=== PATIENT | male | born 1960 | race Caucasian/White ===

== ENCOUNTER 2018-07-01 02:25 | Emergency (ER) | payer MEDICARE, MEDICAID ==
[2018-07-01 03:01] LABS: Hemoglobin 11.8 g/dL (14.0-18.0); Mean Corpuscular HGB CONC 31.5 g/dL (32.0-36.0); Mean Corpuscular Hemoglobin 25.4 pg (27.0-31.0); Mean Corpuscular Volume 80.6 fL (78.0-98.0); Mean Platelet Volume 11.7 fL (7.4-10.4); Platelet Count 102 thou/uL (130-400); RBC Distribution Width 14.9 % (11.5-14.5); Red Blood Cell (RBC) Count 4.63 mill/uL (4.70-6.10); White Blood Cell (WBC) Count 5.4 thou/uL (4.8-10.8)
[2018-07-01 03:12] LABS: ALT (SGPT) 25 U/L (8-55); AST (SGOT) 20 U/L (5-34); Albumin 3.9 g/dL (3.5-5.0); Alkaline Phosphatase 67 U/L (40-150); Anion Gap 15 mmol/L (10-20); BUN (Urea Nitrogen) 38 mg/dL (8.4-25.7); Bilirubin, Total 0.5 mg/dL (0.2-1.2); Calc. Creatinine Clearance 0 mL/min (70-130); Calcium 8.2 mg/dL (7.8-10.44); Carbon Dioxide 23 mmol/L (22-29); Chloride 112 mmol/L (98-107); Estimated GFR-MDRD 32; Globulin 2.8 g/dL (2.4-3.5); Glucose 133 mg/dL (70-105); Potassium 4.1 mmol/L (3.5-5.1); Protein, Total 6.7 g/dL (6.0-8.3); Sodium 146 mmol/L (136-145)
[2018-07-01 03:16] LABS: #Basophils 0.1 thou/uL (0.0-0.2); #Eosinphils 0.1 thou/uL (0.0-0.7); #Lymphocytes 0.7 thou/uL (1.20-3.40); #Monocytes 0.3 thou/uL (0.11-0.59); #Neutrophils 4.1 thou/uL (1.40-6.50); %Basophils 1.3 % (0.0-1.0); %Eosinophils 2.2 % (0.0-10.0); %Lymphocytes 13.6 % (21.0-51.0); %Monocytes 6.3 % (0.0-10.0); %Neutrophils 76.7 % (42.0-75.0); Platelet Morphology Comment Appears Decreased; RBC Morphology Normal
[2018-07-01 03:19] LABS: MDiff Complete? YES; Manual Diff?? NO
[2018-07-01] MEDS ORDERED: Furosemide 40 MG/4 ML VIAL ONE (04:15)
[2018-07-01 04:26] LABS: Clarity Hazy (Clear); Glucose, Urine (Dipstick) 100 mg/dL (Negative); Leukocyte Negative (Negative); Nitrite Negative (Negative); Protein, Urine (Dipstick) > or equal to 300 mg/dL (Neg-Trace); Specific Gravity, Urine 1.024 (1.002-1.036)
[2018-07-01 04:27] LABS: Bilirubin Small (Negative); Blood, Urine Moderate (Negative)
[2018-07-01 04:32] LABS: Crystals/HPF 1+ AMORPH URATES HPF (Negative); Squamous Epithelial 0-3 HPF (0-3); WBC/HPF 0-3 HPF (0-3)
--- NOTE | 2018-07-01 07:41 | RAD ---
CHEST 2 VIEWS: Date: 07/01/18 The heart is mildly enlarged. There is no remarkable congestion of the upper lobe vessels, but bilate ral pleural effusions are seen. There is increased density in the right base medially suggestive of a small infiltrate or atelectasis here. The mediastinum is unremarkable. IMPRESSION: 1. Cardiomegaly. 2. Bilateral pleural effusions. 3. Possible right basilar infiltrate. POS: HOME
--- NOTE | 2018-07-01 07:59 | CT ---
PRELIMINARY REPORT/[facility]/EMERGENTY AFTER-HOURS PROCEDURE CT Abdomen and Pelvis Without Contrast EXAM DATE/TIME: 07/01/2018 3:02 AM CLINICAL HISTORY: 58 years old, male; Pain; Other: Testicular pain and swelling TECHNIQUE: Axial computed tomography images of the abdomen and pelvis without contrast. All CT scans at this facility use at least one of these dose optimization techniques: automated expos ure control; mA and/or kV adjustment per patient size (includes targeted exams where dose is matched to clinical indication); or iterative reconstruction. Coronal and sagittal reformatted images were cr eated and reviewed. COMPARISON: No relevant prior studies available. FINDINGS: Lower thorax: There are small bilateral pleural effusions. There is a persistent consolidation at the RIGHT lung base. ABDOMEN: Liver: There are calcified granulomata within the liver. Gallbladder and bile ducts: There is a 9 mm calculus at the gallbladder neck versus adjacent granulom atous calcification. Pancreas: The pancreas appears normal. No ductal dilatation. Spleen: The spleen is normal. Adrenals: The adrenal glands are normal. Kidneys and ureters: Normal. No hydronephrosis. Stomach and bowel: The stomach is normal. Nonspecific round calcified density measuring 2.4 cm within the small bowel in the midabdomen. Appendix: Normal appendix is identified. PELVIS: Bladder: The bladder is normal. Reproductive: There is marked scrotal wall edema/scrotal fluid. There are calcifications of the vas d eferens. ABDOMEN and PELVIS: Intraperitoneal space: Normal. No free air. No significant fluid collection. Bones/joints: No acute fracture. No dislocation. Soft tissues: There is diffuse soft tissue anasarca Vasculature: There is mild prominence of the bilateral iliac arteries measuring up to 1.7 cm on the R IGHT and LEFT. There is nonspecific soft tissue stranding in the pelvis at the level of the iliac art hayes bifurcations which are nonspecific. Lymph nodes: Normal. No enlarged lymph nodes. IMPRESSION: 1. Diffuse soft tissue anasarca with marked scrotal edema as above. Stranding is noted within the ret roperitoneum possibly representing edema or fibrosis. 2. Small bilateral pleural effusions. Thank you for allowing us to participate in the care of your patient. Dictated and Authenticated by: Maurice Blair MD 07/01/2018 5:25 AM Central Time ([place] & [place]) FINAL REPORT CT ABDOMEN AND PELVIS WITHOUT CONTRAST: DATE: 07/01/2018. FINDINGS: Spiral CT of the abdomen and pelvis was performed for evaluation of testicular pain and swelling. Th ere were no prior scans available for comparison. The study was done without oral or IV contrast. C oronal and sagittal reconstructions were done after the exam. Bilateral pleural effusions are present, right slightly greater than left. An area of consolidation with air bronchograms is seen in the right base medially. I cannot tell if this is truly consolidate d lung or atelectasis due to compression from the fluid. Other pathology cannot be excluded at this point. The liver is normal in size but does contain at least 1 large calcification within it. The spleen is large measuring 16 cm in length. There is 1 faint calcification in its mid portion. The gallbladde r is mildly distended but very opaque internally. There is at least 1 calcification internally that is presumed to be a gallstone. There is a 2nd calcification in or near the neck of the gallbladder. There is no stranding around the gallbladder region. The pancreas was unremarkable. The splenic ve in is dilated. The kidneys and adrenal glands showed no acute findings. The abdominal aorta showed some calcification but no aneurysm. At the bifurcation, the iliac arteries are somewhat wider than n ormal, a nonspecific finding, the same being true of the internal iliac arteries. The bowel is nondistended with no sign of obstruction. No inflammatory changes are seen around the b owel. There really is not ascites of real concern. No free air was seen. CT of the pelvis shows a very large amount of fluid in the scrotum along with some thickening of the scrotal wall. There is no significant free fluid in the pelvis itself. There is prominent streaking in the soft tissues of the lower body beginning at about the umbilical level and below. No pelvic m asses were seen. The prostate does not seem markedly large. There are many calcifications in the va s deferens bilaterally. IMPRESSION: 1. Bilateral pleural effusions and right basilar consolidation versus atelectasis. 2. Several granulomatous-type calcifications in the liver. 3. Splenomegaly. 4. Dense opaque gallbladder presumably containing gallstones. One may be either in the neck or near the neck. I cannot tell if this calcification is inside the confines of the neck or immediately out side of it. 5. Enlargement of the splenic vein could merely be due to the patient's fluid status, but it would a lso be instructive to do an ultrasound with Doppler to see if there is any evidence of portal hyperte nsion. 6. Soft tissue anasarca mainly involving the lower half of the body of unclear etiology. This inclu sarina some thickening of the scrotal wall and a very large amount of intrascrotal fluid. Further lizzy p to ascertain the etiology of these findings is needed. Report in agreement with preliminary reading by [facility]. POS: HOME
== END 2018-07-01 06:15 | disposition short-term general hospital (02) ==
LOC: BURERS 02:25
DX: N19 Unspecified kidney failure (principal); I50.9 Heart failure, unspecified; E11.9 Type 2 diabetes mellitus without complications
CPT/HCPCS: 71046; 74176; 80053; 81003; 81015; 82553; 83880; 84484; 85025; 93005; 96374; J1940